=== PATIENT | male | born 1960 | race Caucasian/White ===

== ENCOUNTER 2024-04-22 20:13 | Emergency (ER) | payer OTHER, SELFPAY ==
[2024-04-22 20:22] VITALS: BMI 19.8
--- NOTE | 2024-04-22 20:37 | ED.GENMED ---
History of Present Illness
General
Chief Complaint: Seizure
Source: patient and ambulance crew
Exam Limitations: none
Time Seen by Provider: 04/22/24 20:26
Nursing documentation reviewed up to this point in time: agreed with
History of Present Illness
History of Present Illness:
63-year-old male presents emergency department due to an apparent seizure. He states he had a seizure before. He drank at least 6 large 16 ounce natural ice beer today. He also reports drinking copious amounts of water.
Past History
Past History
ED Past Medical History: Other (hernia)
Social History
Tobacco: Non-smoker
Alcohol: Daily
Drug: None
Personal:
Living: with family
Review of Systems
Review of Systems
Allergies reviewed?: Yes
All Other Systems: Not applicable
Constitutional: Reports no symptoms
EENT: Reports no symptoms
Respiratory: Reports no symptoms
Cardiac: Reports no symptoms
ABD/GI: Reports no symptoms
: Reports no symptoms
Musculoskeletal: Reports no symptoms
Skin: Reports no symptoms
Neurological: Reports other (seizure)
Endocrine: Reports no symptoms
Hematologic/Lymphatic: Reports no symptoms
Psychiatric: Reports no symptoms
Phy Exam
Physical Exam
Physical Exam:
Physical Exam
General: intoxicated
Neck: supple. no meningeal signs. normal posterior pharynx
Heart: s1/s2 regular rate and rhythm, no murmur. equal radial
pulses.
HEENT: Pupils equal round reactive to light, EOMI
Lungs: no acute respiratory distress. clear bilaterally
Abdomen: normal bowel sounds. not tender. no CVAT
Neuro: alert and oriented. no focal neurological deficits cranial nerves II through XII intact
Skin: no rash, skin tear right forearm
Psychiatric: well kept. interactive and cooperative
Extremities: no edema. no calf tenderness. negative homans. good distal pulses
Course
Orders/Labs/Results
Orders:
Orders
04/22/24 20:34
[address] Sp[address] wo Cont[address] CT [CT Cervical Spine W/o Iv Contr] Urgent
Comment:
Reason For Exam: fall, seizure, etoh intox
04/22/24 20:35
CT Head W/o Iv Contrast Urgent
Comment:
Reason For Exam: seizure, fall
04/22/24 20:36
IV Insert/Care/Rem.- Treatment PRN
04/22/24 20:55
Complete Blood Count/With Diff Urgent
04/22/24 20:56
Osmolality, Random Urine Urgent
Date Specimen was Collected: 04/22/24
Time Specimen was Collected: 20:42
Urine Sodium Urgent
Date Specimen was Collected: 04/22/24
Time Specimen was Collected: 20:42
04/22/24 21:17
Alcohol Urgent
Comprehensive Metabolic Panel Urgent
Serum Osmolality Urgent
04/22/24 21:58
Add On- LAB Urgent
Tests Added?: alcohol
Abnormal Lab Results
04/22/24 04/22/24 04/22/24
20:55 20:56 21:17
WBC 2.8 L 10^3/uL
(4.8-10.8)
RBC 3.13 L 10^6/uL
(4.70-6.10)
Hgb 11.4 L g/dL
(13.0-18.0)
Hct 32.1 L %
(39.0-52.0)
MCV 102.6 H fL
(80.0-94.0)
MCH 36.4 H pg
(27.0-31.0)
MPV 10.9 H fL
(7.4-10.4)
Absolute Neuts (auto) 1.3 L 10^3/uL
(1.4-6.5)
Absolute Lymphs (auto) 1.1 L 10^3/uL
(1.2-3.4)
BUN 7 L mg/dl
(9-20)
Serum Osmolality 361 H mOsm/kg
(275-300)
Urine Osmolality 210 L mOsm/kg
(300-900)
04/22/24 20:55
04/22/24 21:17
Vital Signs
Initial and Last Documented VS:
Initial Vital Signs
Resp
16
04/22/24 20:19
Last Documented Vital Signs
Pulse Resp BP Pulse Ox
64 14 132/86 99
04/23/24 02:00 04/23/24 02:00 04/23/24 02:00 04/22/24 22:45
MDM/Problems Addressed
Differential Diagnosis Includes:
seizure, alcohol abuse
MDM/Problems Addressed:
63 yo male with alcohol intoxication, possible seizure. Pt declines admission. Awaits ride home. [employer] form faxed.
*Radiology
Radiology exam reviewed: radiology read reviewed (ct head nad)
*Pulse Oximetry
Patient hypoxic: no
*EKG
Interpreted by ED Provider?: NA
*Brick Molder Hand Interpretation
Rate: normal
Interpretation: normal
Heart Rate: 75
Rhythm: sinus
*Critical Care Note
Total Time (30-74mins, 75-104mins- exclusive of procedures): Not Applicable
Patient Management
Social determinants of health affecting care: Substance abuse
Escalation/DeEscalation of care consider admission/obs:
Admit indicated, patient declines
ED Attending Note
-
Portions of this chart may have been created with voice recognition software.� Occasional wrong word or��sound alike� substitutions may have occurred due to the inherent limitations of voice recognition software.
Discharge Plan
Departure
Patient Disposition: Home (Routine Discharge)
Date of Disposition: 04/23/24
Time of Disposition: 02:50
Patient with high blood pressure during this ER visit?: Yes
Condition: Good
Discharge Problem:
Alcohol abuse, Seizure
Instructions: Seizures, Adult (DC), Alcohol Intoxication ED, BLOOD PRESSURE
Prescriptions:
No Action
Klonopin
Referrals:
Timmy Carrizales MD [Active] - Call in 1-3 days for appt
UNKNOWN - PT DOES,NOT KNOW [Family Provider] -
Interventions
Interventions:
*Risk Screen - Suicide Last Done: 04/22/24 20:22
*General Assessment Last Done: 04/22/24 20:22
*Neglect/Abuse Screening Last Done: 04/22/24 20:22
*ED COVID-19 Vaccine History Last Done: 04/22/24 20:22
ED- Cardiac Assessment Last Done: 04/22/24 20:31
ED- Neurological Assessment Last Done: 04/22/24 20:30
ED- Pulmonary Assessment Last Done: 04/22/24 20:22
Discharge Date and Time
Print Language: GEORGIAN
[2024-04-22 20:58] VITALS: BP 150/86
[2024-04-22 21:00] VITALS: BP 141/82
[2024-04-22 21:05] LABS: Osmolality Urine 210 mOsm/kg (300-900)
[2024-04-22 21:07] LABS: % Basophils 1.1 % (0-2); % Eosinophils 2.9 % (0-6); % Lymphocytes 40.4 % (20.5-51.1); % Monocytes 7.9 % (1.7-9.3); % Neutrophils 47.7 % (42.2-75.2); Absolute Eosinophils 0.1 10^3/uL (0-0.7); Absolute Lymphocytes 1.1 10^3/uL (1.2-3.4); Absolute Monocytes 0.2 10^3/uL (0.1-0.6); Absolute Neutrophils 1.3 10^3/uL (1.4-6.5); Hematocrit 32.1 % (39.0-52.0); Hemoglobin 11.4 g/dL (13.0-18.0); Mean Corp Hgb Conc. 35.5 g/dL (33.0-37.0); Mean Corpuscular Hgb 36.4 pg (27.0-31.0); Mean Corpuscular Volume 102.6 fL (80.0-94.0); Mean Platelet Volume 10.9 fL (7.4-10.4); Nucleated Red Blood Cells % 0 % (-); Platelet Count 253 10^3/uL (130-400); Red Blood Cell Count 3.13 10^6/uL (4.70-6.10); Red Cell Dist. Width 13.6 % (11.5-14.5); White Blood Cell Count 2.8 10^3/uL (4.8-10.8)
[2024-04-22 21:29] LABS: Urine Sodium 53 mmol/L (30-90)
[2024-04-22 21:47] LABS: ALT (SGPT) 15 U/L (0-50); AST (SGOT) 32 U/L (17-59); Albumin 3.8 g/dl (3.5-5.0); Alkaline Phosphatase 94 U/L (38-126); Blood Urea Nitrogen 7 mg/dl (9-20); Calcium 8.8 mg/dl (8.4-10.2); Carbon Dioxide 27 mmol/L (22-30); Chloride 103 mmol/L (98-107); Estimated Creatinine Clearance 84 ml/min; Glucose 89 mg/dl (70-99); Potassium 4.2 mmol/L (3.5-5.1); Sodium 142 mmol/L (135-145); Total Bilirubin 0.4 mg/dl (0.2-1.3); Total Protein 7.5 g/dl (6.3-8.2); eGFR > 60.00
[2024-04-22 22:00] VITALS: BP 119/68
[2024-04-22 22:28] LABS: Alcohol 287 mg/dl
[2024-04-22 22:47] LABS: Osmolality Serum 361 mOsm/kg (275-300)
[2024-04-23 00:11] VITALS: BP 147/91
[2024-04-23 01:00] VITALS: BP 135/79
[2024-04-23 02:00] VITALS: BP 132/86
[2024-04-23 03:00] VITALS: BP 141/75
[2024-04-23 03:47] VITALS: BP 155/97
[2024-04-23] MEDS: NSS 1000 IV (03:52)
[2024-04-23 04:00] VITALS: BP 150/83
== END 2024-04-23 06:42 | disposition home or self-care (01) ==
LOC: EMR 20:13
PROVIDERS: EMERGENCY PHYSICIAN Emergency Medicine
DX: G40.909 Epilepsy, unspecified, not intractable, without status epilepticus (principal); F10.129 Alcohol abuse with intoxication, unspecified; S51.811A Laceration without foreign body of right forearm, initial encounter; X58.XXXA Exposure to other specified factors, initial encounter; M19.90 Unspecified osteoarthritis, unspecified site
CPT/HCPCS: 99284; 96360; 70450; 72125; 80053; 82077; 83930; 83935; 84300; 85025

== ENCOUNTER 2024-10-27 19:20 | Inpatient (IN) | payer OTHER, SELFPAY ==
[2024-10-27 15:59] VITALS: BP 148/97
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
[2024-10-27 17:06] VITALS: BMI 18.4
[2024-10-27 18:07] LABS: % Basophils 1.2 % (0-2); % Eosinophils 1.6 % (0-6); % Immature Granulocytes 0.2 % (0-0.5); % Lymphocytes 22.3 % (20.5-51.1); % Monocytes 8.9 % (1.7-9.3); % Neutrophils 65.8 % (42.2-75.2); Absolute Basophils 0.1 10^3/uL (0-0.2); Absolute Eosinophils 0.1 10^3/uL (0-0.7); Absolute Lymphocytes 1.1 10^3/uL (1.2-3.4); Absolute Monocytes 0.4 10^3/uL (0.1-0.6); Absolute Neutrophils 3.2 10^3/uL (1.4-6.5); Hematocrit 33.7 % (39.0-52.0); Hemoglobin 11.6 g/dL (13.0-18.0); Mean Corp Hgb Conc. 34.4 g/dL (33.0-37.0); Mean Corpuscular Hgb 35.6 pg (27.0-31.0); Mean Corpuscular Volume 103.4 fL (80.0-94.0); Mean Platelet Volume 9.6 fL (7.4-10.4); Nucleated Red Blood Cells % 0 % (-); Platelet Count 247 10^3/uL (130-400); Red Blood Cell Count 3.26 10^6/uL (4.70-6.10); White Blood Cell Count 4.9 10^3/uL (4.8-10.8)
[2024-10-27 18:10] VITALS: BP 140/82
[2024-10-27 18:13] LABS: Erythrocyte Sed Rate 53 mm/hour (0-20)
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
[2024-10-27 18:18] LABS: Lactic Acid 2.1 mmol/L (0.7-2.0)
[2024-10-27 18:21] LABS: ALT (SGPT) 14 U/L (0-50); AST (SGOT) 30 U/L (17-59); Albumin 4.2 g/dl (3.5-5.0); Alkaline Phosphatase 102 U/L (38-126); Blood Urea Nitrogen 8 mg/dl (9-20); Calcium 9.1 mg/dl (8.4-10.2); Carbon Dioxide 23 mmol/L (22-30); Chloride 98 mmol/L (98-107); Estimated Creatinine Clearance 62 ml/min; Glucose 85 mg/dl (70-99); Potassium 3.8 mmol/L (3.5-5.1); Sodium 135 mmol/L (135-145); Total Bilirubin 0.7 mg/dl (0.2-1.3); Total Protein 8.8 g/dl (6.3-8.2); eGFR > 60.00
[2024-10-27] MEDS: MAXIPIME 1000 MG IV (18:22)
[2024-10-27] MEDS: BENADRYL 25 MG IV ×2 (18:22→21:05)
--- NOTE | 2024-10-27 18:48 | W.PN.UPDATE ---
Update Note
Progress Note Update
Patient seen in conjunction with EARNESTINE. I agree with the findings on exam physical. I concur with the assessment and plan unless stated otherwise.
Briefly this is a 64-year-old with history of prior alcohol abuse presenting to the emergency department with skin lesions in the bilateral lower extremities worse on the right. Patient reported that the skin lesions have been present for about a
month and have been worsening. He said his had multiple exposures for when flow and was concerned about a fungal process. He states these lesions are initially started as a small red spots started started quality seen and developed into
posterolateral scaly rash extending from these ankle up to the midshin with satellite lesions appearing to be spreading up to his thigh on the on the right. Reports chills at home. He states he has severe pruritus which prevents him from sleeping
at night since the onset of these lesions. Patient reports prior history of eczema which appears to be mostly on his upper extremities. He smokes tobacco about half a pack per day. He reports that he drinks about 2 beers a day or more. He has
had alcohol withdrawal in the past (not in the last 10 years. His last drink was yesterday. No history of diabetes.
On arrival in the emergency department he was afebrile, blood pressure was 140/80 with a pulse of 89 and he was satting 99% on room air. CBC was mostly unremarkable with white count of 4.9 hemoglobin of 11.6 and a platelet of 2.7. MCV was elevated
at 103. Electrolytes were completely normal. BUN and creatinine were normal. Glucose was normal.
My evaluation patient was generally well-appearing except for the skin lesions. He does have a scaly plaque which appears to be due to coalescing crusting pustular lesions on erythematous base with pruritus. No abscess or fluid collection. No
significant edema. Mild tenderness. Minimal pain at rest.
A&P
Possibly superimposed cellullitis due to scratching on a pruritic lesion. Risk factors include wet condition, etoh use.
- Admit to med/surg
- Blood cultures
- per ID, Vanc/Cefepime. Appreciate input
- benadryl prn pruritus
ETOH abuse - inconsistent but claims 2 beers / day to me. H/O withdrawal 10 years ago. Signs of dependence include MCV 103 with mild anemia. LFTs normal.
- msas protocol with benadryl, thiamine
- check b12, folate
DVT PPX - lovenox sq
Code status - full code
[2024-10-27 19:00] VITALS: BP 126/73
[2024-10-27] MEDS: NSS 1000 IV (19:24)
[2024-10-27] MEDS: VANCOCIN 530 MG IV (19:24)
[2024-10-27 20:00] VITALS: BP 148/80
[2024-10-27] MEDS: THIAMINE INJECTION 200 MG IV (21:04)
[2024-10-27 21:09] VITALS: BP 166/85; BMI 18.6
[2024-10-27 21:36] LABS: Urine Albumin Negative (Neg - Trace); Urine Bilirubin Negative (Negative); Urine Character Clear (Clear); Urine Color Yellow; Urine Glucose Negative (Negative); Urine Ketone Negative (Negative); Urine Leukocyte 3+ (Negative); Urine Nitrite Negative (Negative); Urine Occult Blood Negative (Negative); Urine Urobilinogen Negative (Neg - 1+)
[2024-10-27 21:44] LABS: Urine Squamous Cell 0-2 /LPF (Few)
[2024-10-27 21:45] LABS: Urine White Cell >100 /HPF (0-5)
[2024-10-27 21:46] LABS: INR 1.11; PT 14.6 Sec (11.4-14.6); Urine Bacteria Many (Negative)
[2024-10-27 21:47] LABS: APTT 33.2 Sec (23.4-35.0)
[2024-10-27 21:49] LABS: Lactic Acid 1.6 mmol/L (0.7-2.0)
[2024-10-27 21:54] LABS: Alcohol 71 mg/dl; GGTP 24 U/L (15-73); Magnesium 1.7 mg/dl (1.6-2.3); Phosphorus 3.3 mg/dl (2.5-4.5)
[2024-10-27 22:00] LABS: B-Hydroxybutyrate 0.28 mmol/L (0.02-0.27)
[2024-10-27 23:55] VITALS: BP 148/83
[2024-10-28] MEDS: TYLENOL 650 MG PO ×2 (00:52→09:36)
[2024-10-28] MEDS: BENADRYL 25 MG IV ×3 (00:55→21:39)
--- NOTE | 2024-10-28 04:31 | DOWNTIME ---
There was a [employer] Reporting Specialist Downtime on 10/28/2024 from 0100 to 10/29/2023 at 0420 . Downtime documentation of patient's care, including medication administrations, has been reconciled in the electronic record per guidelines. Refer to the
patient's paper chart under the miscellaneous tab to see printed paper medication records and downtime forms.
[2024-10-28 05:09] LABS: Amphetamines Negative (Negative); Barbiturates Negative (Negative); Benzodiazepines Negative (Negative); Buprenorphine Negative (Negative); Cocaine Negative (Negative); Marijuana Negative (Negative); Methadone Negative (Negative); Methamphetamines Negative (Negative); Opiates Negative (Negative); Phencyclidine Negative (Negative); Tricyclic Antidepressants Negative (Negative)
[2024-10-28] MEDS: MAXIPIME 2000 MG IV ×2 (05:58→18:17)
[2024-10-28] MEDS: STERILE WATER FOR INJECTION 10 ML IV ×2 (05:59→18:17)
[2024-10-28 07:25] VITALS: BP 159/87
[2024-10-28 08:10] LABS: Hematocrit 32.1 % (39.0-52.0); Hemoglobin 11.2 g/dL (13.0-18.0); Mean Corp Hgb Conc. 34.9 g/dL (33.0-37.0); Mean Corpuscular Hgb 35.8 pg (27.0-31.0); Mean Corpuscular Volume 102.6 fL (80.0-94.0); Mean Platelet Volume 10.1 fL (7.4-10.4); Platelet Count 237 10^3/uL (130-400); Red Blood Cell Count 3.13 10^6/uL (4.70-6.10); Red Cell Dist. Width 14.1 % (11.5-14.5); White Blood Cell Count 4.1 10^3/uL (4.8-10.8)
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
[2024-10-28 08:49] LABS: Blood Urea Nitrogen 8 mg/dl (9-20); Calcium 8.8 mg/dl (8.4-10.2); Carbon Dioxide 22 mmol/L (22-30); Chloride 107 mmol/L (98-107); Estimated Creatinine Clearance 78 ml/min; Glucose 77 mg/dl (70-99); Potassium 4.5 mmol/L (3.5-5.1); Sodium 138 mmol/L (135-145); eGFR > 60.00
--- NOTE | 2024-10-28 09:01 | PHA.VAN.IN ---
Assessment
- Assessment
Renal Function: Appears similar to baseline
Concomitant Antimicrobials: cefepime
AUC Dosing Plan
- Dosing Variables
Dosing Weight (kg): 73
Dosing CrCl (ml/min): 78-96
Vd coefficient (L/kg): 0.7
Utilized IBW for dosing weight and CrCl range is actual and ideal body weight due to BMI < 20
- Empiric Dosing
Initial / Loading Dose: 1500mg - 10/27 19:24
Maintenance Regimen: Vanc 1000mg Q12H - give 500mg x1 now to maintain levels & start at 1800
Estimated AUC (mcg*h/mL): 485 - 586
Estimated Peak (mcg*h/mL): 30.8 - 34.7
Estimated Trough (mcg/ml): 12.2 - 16.2
Estimated Half Life (H): 8.2 - 10
- Monitoring
No levels ordered at this time: consider levels in next few days
Pharmacokinetics Vancomycin I
- -
Patient Age: 64
Patient Sex: Male
Vancomycin Day #: 1
Indication: Skin And Soft Tissue
Requesting Provider: Brandon Stephens
Pertinent Antimicrobial Allergies:
no pertinent antibiotic allergies
Height / Weight:
Height 5 ft 10 in
Actual Weight 58.74 kg
IBW in k
Pertinent Past Medical History: BMI ~18.6
- Vital Signs / Lab Results
Temp Pulse Resp BP Pulse Ox
97.7 F 71 18 148/83 96
10/27/24 23:55 10/27/24 23:55 10/27/24 23:55 10/27/24 23:55 10/27/24 23:55
Lab Results - Hematology
10/27/24 10/28/24
17:57 07:04
WBC 4.9 4.1 L
Lab Results - Chemistry
10/27/24 10/28/24
17:57 07:04
BUN 8 L 8 L
Creatinine 1.0 0.8
Estimated Creat Clear 62 78
Albumin 4.2
10/27/24 10/27/24
17:57 21:24
Lactic Acid 2.1 H 1.6
Lab Results - Urine
10/27/24
21:24
Urine Nitrite Negative
Ur Leukocyte Esterase 3+ A
Urine WBC >100 A
Ur Squamous Epith Cells 0-2
Urine Bacteria Many A
[2024-10-28] MEDS: VANCOCIN HCL 500 MG 100 IV (09:21)
[2024-10-28] MEDS: THIAMINE INJECTION 200 MG IV ×2 (09:25→21:24)
[2024-10-28] MEDS: FOLVITE 1 MG PO (09:26)
[2024-10-28 10:03] VITALS: BMI 18.6
--- NOTE | 2024-10-28 10:35 | WOUNDNOTE ---
BILATERAL LOWER LEGS
--- NOTE | 2024-10-28 10:35 | WOUNDNOTE ---
RIGHT LOWER LEG
--- NOTE | 2024-10-28 10:36 | WOUNDNOTE ---
LEFT LOWER LEG
--- NOTE | 2024-10-28 10:37 | WOUNDNOTE ---
BILATERAL LOWER LEGS(post cleaning/scrubbing with soap, water and gauze)
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
--- NOTE | 2024-10-28 15:05 | CON.ID ---
Consultation
-
Date/Time Consultation Requested: 10/27/24 20:31
Date/Time Consultation Performed: 10/28/24 15:10
Requesting Provider: Kat TARIQ
Performing Provider: Dr Alvarez
Reason for Consultation: rash
Chief Complaint / Past History
Chief Complaint
rash
History of Present Illness
Mr Ornelas is a 64 year old male without significant past medical history who presented here for about a 1 month history of a spreading, coalescing, pustular disseminated rash. The rash is worse over the right lower extremity. He endorses chills
but no ramona fevers at home. He reports rash greenberg about 1 month ago after cleaning up mold in the basement. No improvement with moisturizer. No ramona fevers nausea, vomiting, constipation, diarrhea or urinary symptoms. Also note he's lost about
4 kg since he was first seen here 04/22/2024 - 6 months ago, 40 lbs over about 2 years. Also reports 'Im going blind' and that treatment would invovolve intravitreal injections which he is not willing to pursue
Since arrival here he has been afebrile, bp stable, wbc initally 4.9 today mildly low at 4.1, hgb 11.2, plt 237, there was no L shift on arrival, esr 53, cr 0.8, na 138, lactic acid initially 2.1 now 1.6, lfts wnl, glucoses have been wnl, ua with
>100 wbc/hpf and many bacteria, BHB just above the cut off at 0.28 (normal <0.27), blood cultures x2 in progress, patient is currently on vancomycin and cefepime, ID is consulted for assistance with management.
Past History
Additional Past Medical History:
none
Additional Past Surgical History:
hernia repair
Allergy History:
bee pollen Allergy (Verified 10/27/24 16:03)
Unknown
Latex, Natural Rubber Allergy (Verified 10/27/24 16:03)
Unknown
pollen extracts Allergy (Verified 10/27/24 18:22)
Unknown
Medications Reviewed: Yes
Social History
Tobacco: Smoker
Alcohol: Occasional
Drug: None
Family History
Family History: Not Pertinent
Review of Systems
Review of Systems
General: Chills; Negative Fever
All systems: All other systems were reviewed and were negative
Vital Signs
Temp Pulse Resp BP Pulse Ox
97.8 F 81 18 159/87 98
10/28/24 07:25 10/28/24 07:25 10/28/24 07:25 10/28/24 07:25 10/28/24 07:25
Physical Exam
Physical Exam
Constitutional: No Acute Distress and Cachetic
Cardiovascular: Regular Rate and S1/S2; Negative Murmur or Rub
Pulmonary: Clear and Symmetric; Negative Wheezes, Rales or Rhonchi
Gastrointestinal: Soft, Non Tender, Non Distended and Normal Bowel Sounds
Skin: Warm, Dry and Rash (vesicular, colaescing, disseminated rash); Negative Jaundice
Lab / Diagnostic Study Results
10/28/24 07:04
10/28/24 07:04
Abs Immat Gran (auto) 0.0 10^3/uL (0-0.05) 10/27/24 17:57
Absolute Neuts (auto) 3.2 10^3/uL (1.4-6.5) 10/27/24 17:57
Absolute Lymphs (auto) 1.1 10^3/uL (1.2-3.4) L 10/27/24 17:57
Absolute Monos (auto) 0.4 10^3/uL (0.1-0.6) 10/27/24 17:57
Absolute Basos (auto) 0.1 10^3/uL (0-0.2) 10/27/24 17:57
Immature Gran % 0.2 % (0-0.5) 10/27/24 17:57
Neutrophils % 65.8 % (42.2-75.2) 10/27/24 17:57
Lymphocytes % 22.3 % (20.5-51.1) 10/27/24 17:57
Monocytes % 8.9 % (1.7-9.3) 10/27/24 17:57
Eosinophils % 1.6 % (0-6) 10/27/24 17:57
Basophils % 1.2 % (0-2) 10/27/24 17:57
ESR 53 mm/hour (0-20) H 10/27/24 17:57
PT 14.6 Sec (11.4-14.6) 10/27/24 21:24
INR 1.11 10/27/24 21:24
Lactic Acid 1.6 mmol/L (0.7-2.0) 10/27/24 21:24
C-Reactive Protein 6.40 mg/L (0.0-10.00) 10/27/24 17:57
Urine WBC >100 /HPF (0-5) A 10/27/24 21:24
Ur Squamous Epith Cells 0-2 /LPF (Few) 10/27/24 21:24
Microbiology Results
Micro:
10/27/24 18:14 Blood Culture - Pending
Blood/Venous
10/27/24 17:57 Blood Culture - Pending
Blood/Venous
Assessment / Plan
Disseminated, coalesceing pustular rash x1 month
Cachexia - Unintentional weight loss - 8 kg in 6 months, 40 lbs across about 2 years
Poor dentition
Difficulties accessing medical care.
- will send culture of vesicle fluid
- c/w vancomycin and cefepime at this time
- HIV screen, recommend outpatient age appropriate cancer screening
- has follow up with [facility] arranged
- with subjective chills reported, 40 lbs unintentional weight loss would like to follow blood cultures another day
- recommend patient establish care with a PCP after dc
[2024-10-28 15:09] VITALS: BP 141/77
--- NOTE | 2024-10-28 15:47 | CM ---
Patient seen bedside, initial assessment completed. Patient is a 64-year-old male with no significant past medical history who presented to [facility] ED for evaluation of rash to bilateral lower extremities.
Patient reports he lives w/ friends in a 2STH- 3 steps to enter. Patient uses a cane to ambulate, has grab bar in the bathroom. Patient states he is able to tie binder the shower and does not need a shower chair at this time. Patient denies SNF/VN/PT
hx, OP therapy at [place] in the past. Patient denies any current or OP services at this time.
Address, point of contact and insurance verified. Patient stated address listed is his mailing address. Physical address is [address] [place] [address], [place].
PCP: Dr. Adames. Patient stated he is wanting to locate another PCP closer to his home
[facility]
CM consulted for substance abuse counseling. CM discussed need w/ patient. Patient stated he drinks a lot on 04/22 and experienced the attack stating he seen people jumping from buildings and drink to cope w/ that but remains home during that time.
Patient stated he will have 2 drinks sometimes but did not express any concerns or his drinking affecting his daily living or relationships. Patient declined any support/resources at this time
Plan: Anticipate home; no needs
[2024-10-28] MEDS: VANCOCIN 200 IV (18:16)
[2024-10-28] MEDS: LOVENOX 40 MG SC (18:17)
[2024-10-28] MEDS: TRIAMCINOLONE ACETONIDE 0.1% CREAM 1 APPLIC TOPICAL (21:21)
[2024-10-28] MEDS: FLUSH (NSS) 2 FLUSH IV ×2 (21:25→21:41)
[2024-10-28 23:25] VITALS: BP 150/85
[2024-10-29] MEDS: MAXIPIME 2000 MG IV (05:32)
[2024-10-29] MEDS: STERILE WATER FOR INJECTION 10 ML IV (05:36)
[2024-10-29] MEDS: FLUSH (NSS) 3 FLUSH IV (05:37)
[2024-10-29] MEDS: VANCOCIN 200 IV (05:38)
[2024-10-29 07:29] VITALS: BP 169/97
[2024-10-29] MEDS: FOLVITE 1 MG PO (08:07)
[2024-10-29] MEDS: THIAMINE INJECTION 200 MG IV (08:07)
[2024-10-29] MEDS: TRIAMCINOLONE ACETONIDE 0.1% CREAM 1 APPLIC TOPICAL (08:08)
[2024-10-29 08:32] LABS: Hematocrit 31.2 % (39.0-52.0); Hemoglobin 10.9 g/dL (13.0-18.0); Mean Corp Hgb Conc. 34.9 g/dL (33.0-37.0); Mean Corpuscular Hgb 36.1 pg (27.0-31.0); Mean Corpuscular Volume 103.3 fL (80.0-94.0); Mean Platelet Volume 10.1 fL (7.4-10.4); Platelet Count 213 10^3/uL (130-400); Red Blood Cell Count 3.02 10^6/uL (4.70-6.10)
[2024-10-29 08:54] LABS: Blood Urea Nitrogen 7 mg/dl (9-20); Calcium 8.9 mg/dl (8.4-10.2); Carbon Dioxide 23 mmol/L (22-30); Chloride 101 mmol/L (98-107); Estimated Creatinine Clearance 89 ml/min; Glucose 90 mg/dl (70-99); Magnesium 1.8 mg/dl (1.6-2.3); Sodium 133 mmol/L (135-145); eGFR > 60.00
--- NOTE | 2024-10-29 09:29 | W.PN.HOSP.TC ---
Addendum entered and electronically signed by Charlene Blake MD 10/29/24 12:52:
total DC time 39 min
Original Note:
Today's Communication/Plan
-
pt adamant about being discharged today
DC with Levaquin 750 mg daily x7 days per ID
Assessment / Plan
Assessment / Plan
HPI: 64-year-old male with no significant past medical history who presented to [facility] ED for evaluation of rash to bilateral lower extremities R>L.
Patient reports getting a cut to leg approximately 1 month ago and shortly after needing to clean up mold from basement. After cleaning mold up he noticed rash start on right leg that he thought was eczema in the beginning and utilized moisturizer
without positive effect. He reports over time the rash has spread to left leg and now noticing spots on bilateral upper extremities, denies any area to torso. He states he attempted to get outpatient appointment with a tool adjuster but no
availability for greater than a month. Patient denies any fever, chills, nausea, vomiting, constipation, diarrhea or urinary symptoms.
A/P:
# Disseminated, coalesceing pustular rash x1 month
Follow Blood cultures.
Vanc/Cefepime -> Levaquin 750 mg daily x7 days per ID
ID on board
Checking HIV
Wound care on board
Benadryl prn pruritus
Follow up with outpt derm as planned
# Unintentional weight loss
8 kg in 6 months, 40 lbs across about 2 years
Recc outpt PCP for cancer screening
# alcohol use disorder
2 beers multiple times per week
alcohol level 71 on admission
MSAS protocol
# Essential HTN
Started low dose Norvasc 2.5 mg daily
# Mild hyponatremia
DVT PPX - lovenox sq
Code status - full code
DW RN
DW ID
Anticipated Discharge: Today
Subjective/Interval History
-
Date of Service: October 29, 2024
Objective Data
-
Labs:
Laboratory Results
10/29/24
07:55
WBC 4.0 L
Hgb 10.9 L
Hct 31.2 L
Plt Count 213
Sodium 133 L
Potassium 4.0
Chloride 101
Carbon Dioxide 23
BUN 7 L
Creatinine 0.7
Glucose 90
Calcium 8.9
Vital Signs:
Vital Signs
Temp Pulse Resp BP Pulse Ox
36.6 C 77 18 169/97 98
10/29/24 07:29 10/29/24 07:29 10/29/24 07:29 10/29/24 07:29 10/29/24 09:27
I&O
10/28/24 10/29/24 10/30/24
06:59 06:59 06:59
Intake Total 480 / 480 1420 / 1420
Output Total 950 / 950 1175 / 1175
Balance -470 / -470 245 / 245
Review of Systems
-
All other systems: Reviewed and negative
Physical Exam
-
General: Well Developed, Well Nourished, No Apparent Distress, Comfortable and Conversant; Negative Respiratory Distress
HEENT: Normocephalic, Atraumatic, Nose Appears Normal and Ears Appear Normal; Negative Oxygen
Respiratory: Clear to Auscultation and Non Labored Respirations; Negative Accessory Resp Muscle Use
Cardiac: Regular Rhythm and S1/S2
GI: Soft, Nontender, Nondistended and Normal Bowel Sounds
Skin: Lesions (BL LE scaly skin lesion, R > L) and Other (see wound care note)
Neuro: Awake, Alert and Oriented
Psych: Calm and Intact Judgement/Insight
Data Reviewed
-
Labs: Labs Reviewed by me
[2024-10-29] MEDS: NORVASC 2.5 MG PO (10:37)
--- NOTE | 2024-10-29 11:04 | CM ---
Chart reviewed. Patient for d/c today, d/c order placed.
No CM needs identified at this time
Plan: Home; no needs
[2024-10-29 11:45] VITALS: BP 160/88
--- NOTE | 2024-10-29 12:47 | W.DCSUMMARY ---
Discharge Summary
Discharge Data
Date of Admission: 10/27/24
Date of Discharge: 10/29/24
-
Pending Results: No
Hospital Course
Principal Diagnosis:
Disseminated, coalescing pustular rash x1 month
Unintentional weight loss
Essential hypertension
Chronic Diagnoses:�
alcohol use disorder
Consultations:�
Infectious disease
Procedures:�
None
Clinical course:�
This is a 64-year-old male with no known past medical history who presented to [facility] ED for evaluation of rash to bilateral lower extremities R > L.
Problem 1:
Disseminated, coalescing pustular rash x1 month.
His blood cultures were negative.
He received empiric antibiotics with IV vancomycin and cefepime while in the hospital, and these were changed to oral Levaquin 750 mg daily for 7 more days per ID.
He has been informed to follow-up closely with dermatology outpatient.
He can continue with Benadryl as needed for pruritus.
Problem 2:
Unintentional weight loss: 8 kg in 6 months, 40 lbs across about 2 years.
He has been informed to follow-up with his PCP for cancer screening.
Problem 3:
Essential hypertension.
He was started with low-dose Norvasc 2.5 mg daily which he can continue going forward.
He can follow-up with his PCP for further blood pressure management.
As for the rest of his medical problems, they were stable during his hospital stay.
Discharge Plan
-
Patient Disposition: Home (Routine Discharge)
Discharge Diagnosis/Procedures: Disseminated coalesceing pustular rash x1 month;
Unintentional weight loss;
Hypertension
Condition: Fair
Diet: As tolerated
Activity: As tolerated
Driving Restrictions: As prior to admission
Wound Care: Wound Care Instructions
legs and lower back: Wash with soap and water, apply Triamcinolone cream twice a day until healed then moisturize legs daily after bathing.
Follow up with securities underwriter if legs do not improve
Activity Restrictions/Additional Instructions:
Follow up with your PCP for unintentional weight loss work up
Referrals:
NONE,* [Family Provider] - in less than 1 week
Additional Discharge Medication Instructions: Continue Antibiotic Levaquin 750 mg daily for 7 days
Prescriptions:
New
amlodipine 2.5 mg Tablet
2.5 mg PO DAILY Qty: 30 0RF
levofloxacin 750 mg tablet
750 mg PO DAILY 7 Days Qty: 7 0RF
diphenhydramine HCl [Benadryl] 25 mg capsule
25 mg PO TID PRN (Reason: itching) Qty: 14 0RF
Discharge Orders:
Discharge Patient (As Directed); Ordered 10/29/24
Ordered By: Charlene Blake
Discharge Date and Time
Discharge Date/Time: 10/29/24 12:43
Print Language: [id number]
[2024-10-29 18:51] LABS: Hepatitis C Antibody Negative (Negative)
[2024-10-30 16:03] LABS: HIV Combo Negative (Negative)
== END 2024-10-29 12:43 | disposition home or self-care (01) | DRG 603 ==
LOC: 4 EAST ACU 19:20
PROVIDERS: Nurse Practitioner Family; ADMITTING PHYSICIAN Internal Medicine; ATTENDING PHYSICIAN Internal Medicine; CONSULT PHYSICIAN Student in an Organized Health Care Education/Training Program; EMERGENCY PHYSICIAN Emergency Medicine
DX: L08.0 Pyoderma (principal); Z68.1 Body mass index [BMI] 19.9 or less, adult; E87.1 Hypo-osmolality and hyponatremia; F17.210 Nicotine dependence, cigarettes, uncomplicated; F10.20 Alcohol dependence, uncomplicated; R63.4 Abnormal weight loss; I10 Essential (primary) hypertension
CPT/HCPCS: 80048; 80053; 80306; 81003; 81015; 82010; 82077; 82977; 83605; 83735; 84100; 85025; 85027; 85610; 85652; 85730; 86140; 86803; 87040; 87070; 87205; 87389; 96374; 96375; 99285; 99406